=== PATIENT | male | born 1945 | race Caucasian/White ===

== ENCOUNTER 2016-08-07 16:50 | Inpatient (IN) ==
[2016-08-07] MEDS ORDERED: *HR* Morphine 2 MG/ML SYRINGE IV ONE (17:43)
[2016-08-07] MEDS ORDERED: Ondansetron 4 MG/2 ML VIAL IV ONE (17:43)
--- NOTE | 2016-08-07 18:14 | Emergency Department Note ---
Disposition Clinical Impression: Femoral neck fracture Qualifiers: Encounter type: initial encounter Fracture type: closed Laterality: right Qualified Code(s): S72.001A - Fracture of unspecified part of neck of right femur, initial encounter for closed fracture Disposition: Admitted As Inpatient Condition: Good [facility]errals: [facility] [Primary Care Provider] - Forms: ED Satisfaction Letter Lower Extremity Injury HPI - General Chief Complaint: ED Extremity Injury, Lower Stated Complaint: R hip fracture Time Seen by Provider: 08/07/16 16:54 Source: EMS Limitations: altered mental status Nursing Notes Reviewed: Yes Vital Signs Reviewed: Yes - History of Present Illness Pt Subjective Complaint: hip injury Injury location: Right hip Onset (ago): unknown Mechanism of Injury: unknown Context: other (unknown) Place: home Pain Severity: moderate Improves with: nothing Worsens with: movement Associated symptoms: Reports: unable to bear weight - Related Data Allergies Allergy/AdvReac Type Severity Reaction Status Date / Time Amoxicillin Allergy See Verified 08/07/16 16:59 Comments All systems ED: reviewed and negative except as stated. Constitutional: Denies: fever, chills, weakness Gastrointestinal: Denies: nausea, vomiting Past Medical History - Past Medical History Source: patient, old records reviewed, nursing notes reviewed Medical history: Reports: dementia, GERD, hypertension, other Psychiatric history: Reports: depression, schizophrenia - Social History Smoking Status: Never smoker Alcohol use: Reports: none Drug use: Reports: none Physical Exam - General Limitations: altered mental status General appearance: alert, in no apparent distress - Eye Eye exam: Present: normal appearance, PERRL, EOMI - ENT ENT exam: normal exam, normal oropharynx, mucous membranes moist - Neck Neck exam: Present: normal inspection, full ROM, trachea midline - Chest Chest inspection: Present: normal inspection, symmetric chest wall rise - Respiratory Respiratory exam: Present: normal lung sounds bilaterally - Cardiovascular Cardiovascular exam: Present: regular rate, normal rhythm, normal heart sounds - Abdominal Exam Abdominal exam: Present: soft, Non-Tender. Absent: tenderness, distention, guarding, rebound, rigidity - Expanded Lower Extremity Exam Hip/Pelvis exam: Present: tenderness (pain with movement) - Neurological Exam Neurological exam: Present: alert. Absent: oriented X3 (person only) - Psychiatric Psychiatric exam: Present: normal affect, normal mood - Skin Skin exam: Present: warm, dry, intact, normal color Course Vital Signs Temperature 98.1 F 08/07/16 16:53 Pulse Rate 75 08/07/16 16:53 Respiratory Rate 16 08/07/16 16:53 Blood Pressure 130/114 08/07/16 16:53 O2 Sat by Pulse Oximetry 99 08/07/16 16:53 Temperature 98.1 F 08/07/16 16:53 Pulse Rate 83 08/07/16 17:59 Respiratory Rate 16 08/07/16 17:59 Blood Pressure 140/88 08/07/16 17:59 O2 Sat by Pulse Oximetry 99 08/07/16 17:59 Oxygen Delivery Oxygen Delivery Room Air Extremity Injury, Lower - Differential Diagnosis Likely: sprain/strain, acute internal derangement of knee, fracture, dislocation - Medical Records Medical records reviewed: Yes I reviewed the patient's medical records. - Lab Data Lab results reviewed: Yes I reviewed the patient's lab results. Result diagrams: 08/07/16 18:14 08/07/16 18:14 Lab Results 08/07/16 08/07/16 Range/Units 18:14 18:14 WBC 7.1 (4.3-11.1) K/mcL RBC 4.02 L (4.19-5.50) M/mcL Hgb 12.7 L (12.9-16.9) g/dL Hct 38.0 (37.5-50.1) % MCV 94.5 (83.0-100.0) fL MCH 31.6 (28.0-33.3) pg MCHC 33.4 (31.6-35.5) g/dL RDW 13.2 (11.5-14.5) % Plt Count 283 (140-400) K/mcL MPV 9.4 (9.4-12.4) fL Immature Gran % 0.6 (0-4) % Seg Neutrophils % 69.5 % Lymphocytes % 22.0 % Monocytes % 6.7 % Eosinophils % 0.6 % Basophils % 0.6 % Neutrophils # 4.9 (1.6-8.9) K/mcL Lymphocytes # 1.6 (0.6-4.6) K/mcL Monocytes # 0.5 (0.0-1.3) K/mcL Eosinophils # 0.0 (0.0-0.6) K/mcL Basophils # 0.0 (0.0-0.2) K/mcL Immature Plt Fraction 1.6 (1.1-6.1) % Sodium 139 (136-145) mEq/L Potassium 3.9 (3.5-4.5) mEq/L Chloride 108 (98-109) mEq/L Carbon Dioxide 23 (19-29) mEq/L BUN 12 (8-26) mg/dL Creatinine 0.74 (0.72-1.25) mg/dL Est GFR ( Amer) > 60 (> 60) Est GFR (Non-Af Amer) > 60 (> 60) BUN/Creatinine Ratio 16 (6-26) Glucose 103 H (70-99) mg/dL Calculated Osmolality 288 (280-300) Calcium 8.6 (8.6-10.8) mg/dL - Radiology Data Radiology results reviewed: Yes I reviewed the patient's radiology results.
[2016-08-07 19:03] LABS: Basophils % 0.6 %; Eosinophils % 0.6 %; Hemoglobin 12.7 g/dL (12.9-16.9); Immature Granulocytes % 0.6 % (0-4); Immature Platelets 1.6 % (1.1-6.1); Lymphocytes # 1.6 K/mcL (0.6-4.6); Mean Corpuscular HGB Conc 33.4 g/dL (31.6-35.5); Mean Corpuscular Hemoglobin 31.6 pg (28.0-33.3); Mean Corpuscular Volume 94.5 fL (83.0-100.0); Mean Platelet Volume 9.4 fL (9.4-12.4); Monocytes # 0.5 K/mcL (0.0-1.3); Monocytes % 6.7 %; Neutrophils # 4.9 K/mcL (1.6-8.9); Platelet Count 283 K/mcL (140-400); Red Blood Count 4.02 M/mcL (4.19-5.50); Red Cell Distribution Width 13.2 % (11.5-14.5); Segmented Neutrophils % 69.5 %
[2016-08-07 19:12] LABS: INR 1.1; Prothrombin Time 12.3 Seconds (9.4-12.1)
[2016-08-07 19:15] LABS: Activated Partial Thrombo Time 29.4 Seconds (26.0-36.0)
[2016-08-07 19:19] LABS: BUN/Creatinine Ratio 16 (6-26); Blood Urea Nitrogen 12 mg/dL (8-26); Calcium 8.6 mg/dL (8.6-10.8); Carbon Dioxide 23 mEq/L (19-29); Chloride 108 mEq/L (98-109); Glucose 103 mg/dL (70-99); Osmolality,Calculated 288 (280-300); Potassium 3.9 mEq/L (3.5-4.5); Sodium 139 mEq/L (136-145); eGFR For African Americans > 60 (> 60); eGFR For Non-African Americans > 60 (> 60)
[2016-08-08] MEDS ORDERED: Naloxone 0.4 MG/ML INJ IVP PRN (00:33)
[2016-08-08] MEDS ORDERED: *HR* Promethazine 25 MG/ML VIAL IVP PRN (00:33)
--- NOTE | 2016-08-08 01:09 | Internal Med History&Physical ---
<Ruby Bermudez Nano - Last Filed: 08/08/16 00:59> Date of Encounter: 08/08/16 Time of Encounter: 00:59 Assessment and Plan (1) Femoral neck fracture Current visit: Yes Status: Acute RhipXR: mid-distal r femoral neck fracture no vascular compromise NPO pain control supportive care orthopedics consulted Qualifiers: Encounter type: initial encounter Fracture type: closed Laterality: right Qualified Code(s): S72.001A - Fracture of unspecified part of neck of right femur, initial encounter for closed fracture (2) Dementia Current visit: Yes Status: Acute continue home meds (3) Catatonic schizophrenia, chronic condition Current visit: Yes Status: Acute (4) Major depression, chronic Current visit: Yes Status: Acute continue home meds (5) Falls frequently Current visit: Yes Status: Acute fall precautions (6) Anemia Current visit: Yes Status: Acute chronic Fe deficiency recheck H/H Qualifiers: Anemia type: iron deficiency (7) Sleep apnea Current visit: Yes Status: Acute (8) COPD (chronic obstructive pulmonary disease) Current visit: Yes Status: Acute bronchodilators therapy Internal Medicine - H&P: HPI Chief complaint: R hip pain Admitted From: Emergency Dept Plans for Post Hospital Care: Transfer [facility] History of present illness: Mr. Veliz is a 70 year old male with c/o R hip pain. PMHx dementia, major depressive disorder, catatonic schizophrenia, multiple falls, dysphagia, subarachnoid hemmorrage, subdural hematoma, vascular malformation. Pt has impaired memory at baseline, is poor historian. Pt states he was walking down the [place] with his [place] the [place] he [place] when he tripped and fell. He states he landed on his right hip, did not hit his head or lose consciousness. He states this occurred earlier today, cannot recall at what time. He states right hip is a constant 10/10 pain localized to r hip/upper femur area. that he is unable to move secondary to pain. Pt denies LOC, headache, CP,SOB, numbness/ tingling. Past Med Surg Social Fam HX - Past Medical History Medical history: COPD, dementia, GERD, hypertension, other Psychiatric history: depression, schizophrenia - Social History Smoking Status: Never smoker Alcohol use: none Drug use: none - Family History Mother Living Status: Hx Family Cardiac Disorders: Yes Hx Family Respiratory Disorders: No Hx Family Cancer: No Hx Family GI Disorders: No Hx Family Psychosocial Disorders: Yes Hx Family Medical Disorders: Yes Internal Medicine - H&P: Meds Acetaminophen [Tylenol] 650 mg PO Q6H PRN 08/07/16 [History] Albuterol Neb [AccuNeb] 1.25 mg IH Q2H PRN 08/07/16 [History] Amlodipine [Norvasc] 5 mg PO DAILY 08/07/16 [History] Ammonium Lactate [Lac-Hydrin Five] 1 appl TP HS 08/07/16 [History] Atropine 1% Opth Drops 2 drop SL TID 08/07/16 [History] Bisacodyl [Dulcolax] 10 mg RC DAILY PRN 08/07/16 [History] Calcium Carbonate/Vitamin D3 [Calcium 500-Vit D3 200 Tablet] 1 each PO DAILY [History] Carboxymethylcellulose Sodium [Refresh Liquigel] 2 drop BOTH EYES BID 08/07/16 [ History] Chlorhexidine Gluconate [Peridex] 15 ml MM BID 08/07/16 [History] Cholecalciferol (D-3) [Vitamin D] 1,000 unit PO DAILY 08/07/16 [History] CloZAPine [Clozapine] 200 mg PO DAILY 08/07/16 [History] CloZAPine [Clozaril] 300 mg PO HS 08/07/16 [History] Ferrous Sulfate 325 mg PO DAILY 08/07/16 [History] Finasteride [Proscar] 5 mg PO DAILY 08/07/16 [History] Haloperidol 4 mg PO BID 08/07/16 [History] Haloperidol [Haldol] 2.5 mg PO Q6H PRN 08/07/16 [History] Hydrophilic Ointment [Aquabase] 1 appl TP WETHFRSA 08/07/16 [History] Ipratropium/Albuterol Neb [Duoneb] 3 ml IH Q6HR 08/07/16 [History] LORazepam [Ativan] 0.25 mg PO BID PRN 08/07/16 [History] LORazepam [Ativan] 0.5 mg PO QID 08/07/16 [History] Mag Hydrox/Al Hydrox/Simeth [Antacid Suspension] 15 ml PO TID PRN 08/07/16 [ History] Melatonin 9 mg PO HS 08/07/16 [History] Memantine HCl 10 mg PO BID 08/07/16 [History] Menthol/Camphor [Anti-Itch Lotion] 1 appl TP QID PRN 08/07/16 [History] Multivitamin [Multi-Day Vitamins] 1 each PO DAILY 08/07/16 [History] Nitroglycerin [Nitrostat] 0.4 mg SL Q5M PRN 08/07/16 [History] Nystatin POWDER [Nystop] 1 appl TP AD PRN 08/07/16 [History] Omeprazole [PriLOSEC] 20 mg PO DAILY 08/07/16 [History] Oxybutynin [Ditropan] 5 mg PO BID 08/07/16 [History] Polyethylene Glycol 3350 [Smoothlax] 17 gm PO DAILY 08/07/16 [History] Potassium Chloride [Klor-Con 10] 10 meq PO DAILY 08/07/16 [History] Sennosides/Docusate Sodium [Senna Plus] 2 each PO BID 08/07/16 [History] Allergies Amoxicillin Allergy (Verified 08/07/16 16:59) See Comments All Systems PM: A 10-system review of systems was performed and is negative for pertinent findings except as documented above in the HPI. - Constitutional Constitutional: falls - EENT Eyes: no change in vision, no discharge, no pain, no photophobia Ears: no ear discharge, no ear pain, no tinnitus Nose, mouth and throat: no dysphagia, no nasal discharge, no neck pain, no sore throat - Cardiovascular Cardiovascular ROS IM: no chest pain, no diaphoresis, no dyspnea, no lightheadedness, no palpitations, no syncope - Respiratory Respiratory: no cough, no dyspnea, no wheezing, no excessive phlegm production - Gastrointestinal Gastrointestinal: no abdominal pain, no diarrhea, no hematemesis, no hematochezia, no melena, no nausea, no vomiting - Genitourinary Genitourinary ROS male: no hematuria - Musculoskeletal Musculoskeletal ROS IM: limited range of motion, no numbness, no tingling - Integumentary Integumentary IM: no unusual bruising - Neurological Neurological ROS: frequent falls, no headache(s), no numbness, no tingling - Constitutional Vitals: Temp Pulse Resp BP Pulse Ox 98.1 F 74 16 126/86 96 08/08/16 00:46 08/08/16 00:46 08/08/16 00:46 08/08/16 00:46 08/08/16 00:46 General appearance: Present: A&O X 2 Exam: ill appearing, flat affect - Head Head exam: Present: atraumatic, normocephalic - Eye Eye exam: Present: EOMI, conjuntiva pink, sclera anicteric - ENT ENT exam: Present: mucous membranes moist - Neck Neck exam general surgery: Present: supple, trachea midline. Absent: lymphadenopathy - Respiratory Respiratory exam: Present: decreased breath sounds (diminished in lower lung mims). Absent: rales, respiratory distress, rhonchi, wheezes, tachypnea - Cardiovascular Cardiovascular exam: Present: RRR, +S1, +S2. Absent: diastolic murmur, gallop, rubs, systolic murmur - GI/Abdominal GI/Abdominal exam: Present: normal bowel sounds, soft, no peritoneal signs. Absent: distended, tenderness - Extremities Exam Extremities exam: Present: normal capillary refill, radial pulses palpable and symetrical. Absent: calf tenderness, cyanotic - Expanded Lower Extremities Exam Hip exam: Present: swelling, tenderness Upper Leg exam: Present: tenderness Neuro vascular tendon exam: Present: no vascular compromise. Absent: decreased fine/light touch Gait: Present: unable to bear weight - Neurological Exam Neurological exam: Present: alert, CN II-XII intact, no focal deficits. Absent : facial droop - Psychiatric Psychiatric exam: Present: flat affect Internal Med - H&P Results - Labs CBC & Chem 7: 08/07/16 18:14 08/07/16 18:14 <Mihir Henry R - Last Filed: 08/09/16 01:19> Internal Medicine - H&P: HPI History of present illness: Mr. Veliz is a 70 year old male All Systems PM: A 10-system review of systems was performed and is negative for pertinent findings except as documented above in the HPI. - Constitutional Vitals: Temp Pulse Resp BP Pulse Ox 98.5 F 68 16 129/63 96 08/08/16 10:09 08/08/16 10:09 08/08/16 10:09 08/08/16 10:09 08/08/16 10:09 Internal Med - H&P Results - Labs CBC & Chem 7: 08/08/16 06:06 08/08/16 06:06 Labs: Short CBC 08/08/16 Range/Units 06:06 WBC 6.6 (4.3-11.1) K/mcL Hgb 12.6 L (12.9-16.9) g/dL Hct 39.0 (37.5-50.1) % Plt Count 250 (140-400) K/mcL BMP 08/08/16 06:06 Sodium 140 Potassium 4.0 Chloride 107 Carbon Dioxide 26 BUN 13 Creatinine 0.82 Glucose 96 Calcium 9.3 - Attending Attestation I performed a history and physical examination of the patient and discussed his management with the Resident/Management Supervisor. I reviewed the residents note and agree with the documented findings and plan of care, with additions as below. 70-year-old male with history of dementia presents with fall and was noted to have right femoral neck fracture. O/E Confused. Lungs: CTA; cardiac: RRR. EKG personally reviewed by me shows sinus rhythm with no acute ST-T changes. CXR: Reported left basilar atelectasis. A/P: Orthopedic consultation, pain relief, incentive spirometer. PT/OT.
[2016-08-08] MEDS: cloZAPine 100 MG TABLET PO SCH ×2 (01:26→22:49)
[2016-08-08] MEDS: *HR* HYDROmorphone 2 MG/ML SYRINGE IVP PRN ×6 (01:26→23:35)
[2016-08-08] MEDS: Ipratropium/Albuterol Neb 3 ML IH SCH ×4 (03:53→23:50)
[2016-08-08 06:55] LABS: Hemoglobin 12.6 g/dL (12.9-16.9); Mean Corpuscular HGB Conc 32.3 g/dL (31.6-35.5); Mean Corpuscular Hemoglobin 30.5 pg (28.0-33.3); Mean Corpuscular Volume 94.4 fL (83.0-100.0); Mean Platelet Volume 9.1 fL (9.4-12.4); Platelet Count 250 K/mcL (140-400); Red Blood Count 4.13 M/mcL (4.19-5.50); Red Cell Distribution Width 13.2 % (11.5-14.5)
[2016-08-08 06:57] LABS: INR 1.2; Prothrombin Time 12.5 Seconds (9.4-12.1)
[2016-08-08 07:00] LABS: Activated Partial Thrombo Time 27.1 Seconds (26.0-36.0)
[2016-08-08 07:13] LABS: BUN/Creatinine Ratio 16 (6-26); Blood Urea Nitrogen 13 mg/dL (8-26); Carbon Dioxide 26 mEq/L (19-29); Chloride 107 mEq/L (98-109); Glucose 96 mg/dL (70-99); Magnesium 1.9 mg/dL (1.6-2.6); Osmolality,Calculated 290 (280-300); Sodium 140 mEq/L (136-145); eGFR For African Americans > 60 (> 60); eGFR For Non-African Americans > 60 (> 60)
[2016-08-08] MEDS: 0.9 % Sodium Chloride 1,000 ML IVC SCH ×2 (07:24→17:34)
[2016-08-08 07:28] LABS: Calcium 9.3 mg/dL (8.6-10.8)
[2016-08-08] MEDS: Pantoprazole 40 MG VIAL IVP SCH (09:55)
--- NOTE | 2016-08-08 11:59 | Internal Med Progress Note ---
Date of Encounter: 08/08/16 Time of Encounter: 11:57 - Assessment and plan (1) Femoral neck fracture Current Visit: Yes Status: Acute Assessment and plan: Cleared by hospitalist service for hip repair. He has no history of any cardiac issues. Questions regarding function capacity assessment seem to be fairly normal. Qualifiers: Encounter type: initial encounter Fracture type: closed Laterality: right Qualified Code(s): S72.001A - Fracture of unspecified part of neck of right femur, initial encounter for closed fracture (2) Dementia Current Visit: Yes Status: Chronic Qualifiers: Dementia type: unspecified type Dementia behavioral disturbance: without behavioral disturbance Qualified Code(s): F03.90 - Unspecified dementia without behavioral disturbance (3) Catatonic schizophrenia, chronic condition Current Visit: Yes Status: Chronic (4) COPD (chronic obstructive pulmonary disease) Current Visit: Yes Status: Chronic Qualifiers: COPD type: emphysema Emphysema type: panlobular Qualified Code(s): J43.1 - Panlobular emphysema - Subjective Interval history: He is very been seen by the hospitalist service early this morning. He states he is feeling fine. He states the pain medicine is controlling his pain. He denies any issues with chest pain shortness breath diaphoresis. He denied any exertional chest pain or shortness of breath. He stated he can walk a flight of stairs prior to this without issue. He had a mechanical fall that caused his hip fracture. He denies any passing out chest pain shortness breath. - Constitutional Vitals: Temp Pulse Resp BP Pulse Ox 98.5 F 68 16 129/63 90 L 08/08/16 10:09 08/08/16 10:09 08/08/16 10:10 08/08/16 10:09 08/08/16 10:10 General appearance: Present: A&O X 2 - Respiratory Respiratory exam: Present: CTAB. Absent: rales, rhonchi, wheezes - Cardiovascular Cardiovascular exam: Present: RRR, +S1, +S2 Internal Medicine: Result - Labs CBC & Chem 7: 08/08/16 06:06 08/08/16 06:06 Labs: Short CBC 08/08/16 Range/Units 06:06 WBC 6.6 (4.3-11.1) K/mcL Hgb 12.6 L (12.9-16.9) g/dL Hct 39.0 (37.5-50.1) % Plt Count 250 (140-400) K/mcL BMP 08/08/16 06:06 Sodium 140 Potassium 4.0 Chloride 107 Carbon Dioxide 26 BUN 13 Creatinine 0.82 Glucose 96 Calcium 9.3 - ABG Interpretation ABG results: PT/INR, D-dimer PT 12.5 Seconds (9.4-12.1) H 08/08/16 06:06 Consult Discharge Plan - Plan [facility]errals: [facility] [Primary Care Provider] -
--- NOTE | 2016-08-08 15:34 | Electrocardiograph Report ---
[address] [address] Test Date: 2016-08-07 Pat Name: Omari Veliz Department: 103 Room: [facility] Gender: M Supervisor Accounts Receivable: HANK : 1945 Requested By: Guru Lux Order Number: [id number] Reading MD: Timbo Mota MD Measurements Intervals [place] Rate: 86 P: -2 HI: 143 QRS: 10 QRSD: 93 T: 56 QT: 361 QTc: 404 Interpretive Statements SINUS RHYTHM Electronically Signed On 08-08-2016 15:32:32 EDT by Timbo Mota MD
--- NOTE | 2016-08-08 16:00 | Orthopedic Consult Note ---
Date of Encounter: 08/08/16 Time of Encounter: 07:30 Assessment and Plan (1) Femoral neck fracture Current Visit: Yes Status: Acute Xrays showed femoral neck fracture which will require surgical fixation. Plan for right hip percutanteous pinning by Dr. Clay today. Patient has dementia and cannot sign consent. Several attempts were made this morning and afternoon to contact Priti WAGGONER. Finally able to discuss the surgery procedure as well as r/b/a with EDILSON and she expressed understanding. Verbal consent given over the phone and confirmed by nurse over the phone. NPO after breakfast. Pain control per hospitalist. Qualifiers: Encounter type: initial encounter Fracture type: closed Laterality: right Qualified Code(s): S72.001A - Fracture of unspecified part of neck of right femur, initial encounter for closed fracture History of Present Illness Chief complaint: Right hip pain HPI: Mr. Veliz is a 70 year old male who presented to the [place] yesterday [place] after a [place]. Report states he was walking [place] the [place] with [place] walker when he tripped and fell. Patient has dementia and is poor historian, history from MI report. Was answering most questions appropriately today but slow in thought. Denies hitting head or LOC. Patient states pain is constant 10/10 but is sitting comfortably in bed and falling asleep during exam. Denies pain anywhere else and pain does not radiate from hip. Patient denies n/t to lower extremities. Denies chest pain, SOB, fevers, calf pain. Past Med Surg Social Fam HX - Past Medical History Medical history: COPD, dementia, GERD, hypertension, other Psychiatric history: depression, schizophrenia - Social History Smoking Status: Never smoker Alcohol use: none Drug use: none - Family History Mother Living Status: Hx Family Cardiac Disorders: Yes Hx Family Respiratory Disorders: No Hx Family Cancer: No Hx Family GI Disorders: No Hx Family Psychosocial Disorders: Yes Hx Family Medical Disorders: Yes Medications and Allergies Acetaminophen [Tylenol] 650 mg PO Q6H PRN 08/07/16 [History] Albuterol Neb [AccuNeb] 1.25 mg IH Q2H PRN 08/07/16 [History] Amlodipine [Norvasc] 5 mg PO DAILY 08/07/16 [History] Ammonium Lactate [Lac-Hydrin Five] 1 appl TP HS 08/07/16 [History] Atropine 1% Opth Drops 2 drop SL TID 08/07/16 [History] Bisacodyl [Dulcolax] 10 mg RC DAILY PRN 08/07/16 [History] Calcium Carbonate/Vitamin D3 [Calcium 500-Vit D3 200 Tablet] 1 each PO DAILY [History] Carboxymethylcellulose Sodium [Refresh Liquigel] 2 drop BOTH EYES BID 08/07/16 [ History] Chlorhexidine Gluconate [Peridex] 15 ml MM BID 08/07/16 [History] Cholecalciferol (D-3) [Vitamin D] 1,000 unit PO DAILY 08/07/16 [History] CloZAPine [Clozapine] 200 mg PO DAILY 08/07/16 [History] CloZAPine [Clozaril] 300 mg PO HS 08/07/16 [History] Ferrous Sulfate 325 mg PO DAILY 08/07/16 [History] Finasteride [Proscar] 5 mg PO DAILY 08/07/16 [History] Haloperidol 4 mg PO BID 08/07/16 [History] Haloperidol [Haldol] 2.5 mg PO Q6H PRN 08/07/16 [History] Hydrophilic Ointment [Aquabase] 1 appl TP WETHFRSA 08/07/16 [History] Ipratropium/Albuterol Neb [Duoneb] 3 ml IH Q6HR 08/07/16 [History] LORazepam [Ativan] 0.25 mg PO BID PRN 08/07/16 [History] LORazepam [Ativan] 0.5 mg PO QID 08/07/16 [History] Mag Hydrox/Al Hydrox/Simeth [Antacid Suspension] 15 ml PO TID PRN 08/07/16 [ History] Melatonin 9 mg PO HS 08/07/16 [History] Memantine HCl 10 mg PO BID 08/07/16 [History] Menthol/Camphor [Anti-Itch Lotion] 1 appl TP QID PRN 08/07/16 [History] Multivitamin [Multi-Day Vitamins] 1 each PO DAILY 08/07/16 [History] Nitroglycerin [Nitrostat] 0.4 mg SL Q5M PRN 08/07/16 [History] Nystatin POWDER [Nystop] 1 appl TP AD PRN 08/07/16 [History] Omeprazole [PriLOSEC] 20 mg PO DAILY 08/07/16 [History] Oxybutynin [Ditropan] 5 mg PO BID 08/07/16 [History] Polyethylene Glycol 3350 [Smoothlax] 17 gm PO DAILY 08/07/16 [History] Potassium Chloride [Klor-Con 10] 10 meq PO DAILY 08/07/16 [History] Sennosides/Docusate Sodium [Senna Plus] 2 each PO BID 08/07/16 [History] Allergies Amoxicillin Allergy (Verified 08/07/16 16:59) See Comments All Systems Reviewed: A 10-system review of systems was performed and is negative for pertinent findings except as documented above in the HPI. - Constitutional Constitutional: as per HPI - Cardiovascular Cardiovascular: as per HPI - Respiratory Respiratory: as per HPI - Musculoskeletal Musculoskeletal: as per HPI Physical Exam - Constitutional Vitals: Temp Pulse Resp BP Pulse Ox 98.5 F 68 16 129/63 90 L 08/08/16 10:09 08/08/16 10:09 08/08/16 10:10 08/08/16 10:09 08/08/16 10:10 - Hip right Tenderness with palpation: none (no pain reaction upon palpation of the hip) ROM: extension: abnormal (no erythema, ecchymosis or open wounds noted to the right hip, no calf pain to palpation, ROM restricted secondary to fracture and pain, good dorsiflexion of foot, NV intact) Results - Labs Result Diagrams: 08/08/16 06:06 08/08/16 06:06 Labs: Abnormal lab results RBC 4.13 M/mcL (4.19-5.50) L 08/08/16 06:06 Hgb 12.6 g/dL (12.9-16.9) L 08/08/16 06:06 MPV 9.1 fL (9.4-12.4) L 08/08/16 06:06 PT 12.5 Seconds (9.4-12.1) H 08/08/16 06:06 POC Glucose 102 (58-89) H 08/08/16 11:22 H & H 08/08/16 Range/Units 06:06 Hgb 12.6 L (12.9-16.9) g/dL Hct 39.0 (37.5-50.1) % All other labs normal. - Diagnostic results Hip x-ray: report reviewed, image reviewed Consult Discharge Plan - Plan [facility]errals: [facility] [Primary Care Provider] - - Attending Attestation Case and plan of care discussed with supervising physician who was available for all aspects of care.
--- NOTE | 2016-08-08 21:07 | Anesthesia Evaluation PreOp ---
Date of Encounter: 08/08/16 Time of Encounter: 21:06 - Past History Planned Operation: Right Hip Percutaneous Pinning Cardiac History: HTN Pulmonary History: COPD, MACR Dx COMPUTER SERVICE TECHNICIAN History: Other (dementia, depression, schizophrenia) Other Medical History: GERD Anesthesia History: No Prior Anesthetic Complications, Past Anesthesia Alcohol Use: none Drug use: none Medications and Allergies Acetaminophen [Tylenol] 650 mg PO Q6H PRN 08/07/16 [History] Albuterol Neb [AccuNeb] 1.25 mg IH Q2H PRN 08/07/16 [History] Amlodipine [Norvasc] 5 mg PO DAILY 08/07/16 [History] Ammonium Lactate [Lac-Hydrin Five] 1 appl TP HS 08/07/16 [History] Atropine 1% Opth Drops 2 drop SL TID 08/07/16 [History] Bisacodyl [Dulcolax] 10 mg RC DAILY PRN 08/07/16 [History] Calcium Carbonate/Vitamin D3 [Calcium 500-Vit D3 200 Tablet] 1 each PO DAILY [History] Carboxymethylcellulose Sodium [Refresh Liquigel] 2 drop BOTH EYES BID 08/07/16 [ History] Chlorhexidine Gluconate [Peridex] 15 ml MM BID 08/07/16 [History] Cholecalciferol (D-3) [Vitamin D] 1,000 unit PO DAILY 08/07/16 [History] CloZAPine [Clozapine] 200 mg PO DAILY 08/07/16 [History] CloZAPine [Clozaril] 300 mg PO HS 08/07/16 [History] Ferrous Sulfate 325 mg PO DAILY 08/07/16 [History] Finasteride [Proscar] 5 mg PO DAILY 08/07/16 [History] Haloperidol 4 mg PO BID 08/07/16 [History] Haloperidol [Haldol] 2.5 mg PO Q6H PRN 08/07/16 [History] Hydrophilic Ointment [Aquabase] 1 appl TP WETHFRSA 08/07/16 [History] Ipratropium/Albuterol Neb [Duoneb] 3 ml IH Q6HR 08/07/16 [History] LORazepam [Ativan] 0.25 mg PO BID PRN 08/07/16 [History] LORazepam [Ativan] 0.5 mg PO QID 08/07/16 [History] Mag Hydrox/Al Hydrox/Simeth [Antacid Suspension] 15 ml PO TID PRN 08/07/16 [ History] Melatonin 9 mg PO HS 08/07/16 [History] Memantine HCl 10 mg PO BID 08/07/16 [History] Menthol/Camphor [Anti-Itch Lotion] 1 appl TP QID PRN 08/07/16 [History] Multivitamin [Multi-Day Vitamins] 1 each PO DAILY 08/07/16 [History] Nitroglycerin [Nitrostat] 0.4 mg SL Q5M PRN 08/07/16 [History] Nystatin POWDER [Nystop] 1 appl TP AD PRN 08/07/16 [History] Omeprazole [PriLOSEC] 20 mg PO DAILY 08/07/16 [History] Oxybutynin [Ditropan] 5 mg PO BID 08/07/16 [History] Polyethylene Glycol 3350 [Smoothlax] 17 gm PO DAILY 08/07/16 [History] Potassium Chloride [Klor-Con 10] 10 meq PO DAILY 08/07/16 [History] Sennosides/Docusate Sodium [Senna Plus] 2 each PO BID 08/07/16 [History] Allergies Amoxicillin Allergy (Verified 08/07/16 16:59) See Comments - Meds/Allergy Pre-op Review Medications Reviewed: Yes Allergies Reviewed: Yes Beta Blockers on Current Med List: No Anesthesia Results - Labs 08/08/16 06:06 08/08/16 06:06 Laboratory Tests 08/08/16 06:06 PT 12.5 H INR 1.2 APTT 27.1 - Imaging EKG: report reviewed (08/07/2016 SR) Additional studies: 10/17/2011 Stress Impression: Stress Note * Resting ECG demonstrated normal sinus rhythm. * No baseline arrhythmias were noted. * Pharmacologic stress ECG is negative for ischemia. * No arrhythmias were noted during stress * Patient had no chest pain during stress. Hemodynamic response * The patient demonstrated normal blood pressure response. Study Quality/Desc. * Study quality is average Gated EF % * Gated EF = 61% Left Ventricle * The left ventricle does not appear dilated. NORMALS * Normal wall motion in stress. Apical Perfusion Rest * The apex segment shows a mild reduction in perfusion. Apical Perfusion Stress * The apex segment shows a mild reduction in perfusion. TID * There is no evidence of transient ischemic dilatation Nuclear comments * Negative for infarct. * Negative for ischemia or prior infarct. * Fixed small defect in the Apical wall most likely due to artifact. Anesthesia Exam Vital Signs/O2 Sat, Most Current Temp Pulse Resp BP Pulse Ox 98.9 F 91 24 184/92 97 08/08/16 19:39 08/08/16 19:39 08/08/16 19:39 08/08/16 19:39 08/08/16 19:39 Height: 5'8''/1.73 m Weight: 140 lbs/63.8 kg NPO (# of Hours): 8 Pain Scale: 10 Pain Scale Used: Numeric (1 - 10) - HEENT Pupil (Motor): EOMI Mallampati: III Teeth: Poor dentition Oral Opening: Greater than 3 - COMPUTER SERVICE TECHNICIAN LOC: Confused COMPUTER SERVICE TECHNICIAN Motor: Normal RUE, Normal LUE, Normal RLE, Normal LLE, Normal Face COMPUTER SERVICE TECHNICIAN Sensory: Normal: RUE, LUE, RLE, LLE, Face - Cardiac Rhythm: Regular Murmur: None - Pulmonary Breath Sounds: bilateral Clear Respiratory Effort: Symmetrical Anesthesia Assess/Plan ASA Score: 3 (cooperative but confused) Anesthetic Plan: General (Consent obtained by phone from daughter Priti ) Monitoring Plan: Standard Monitors Recovery Plan: PACU
[2016-08-09 00:06] LABS: Bilirubin,Urine Negative (Negative); Blood,Urine Negative (Negative); Clarity,Urine Cloudy (Clear); Color,Urine Yellow (Yellow); Glucose,Urine (UA) Normal (Normal); Ketones,Urine 15 mg/dL (Negative); Leukocyte Esterase,Urine Negative (Negative); Nitrite,Urine Negative (Negative); PH,Urine 8.5 pH Units (5.0-8.0); Protein,Urine 30 mg/dL (Neg-Trace); Specific Gravity,Urine 1.016 (1.010-1.025); Urobilinogen,Urine Normal (Normal)
[2016-08-09 00:10] LABS: Bacteria,Urine None Seen per hpf (None-Few); Hyaline Casts,Urine None Seen per lpf (None-Few); Squamous Epithelial Cell,Urine Many per lpf (None-Few); WBC,Urine 0-3 per hpf (0-3)
[2016-08-09] MEDS: *HR* HYDROmorphone 2 MG/ML SYRINGE IVP PRN ×3 (03:07→11:29)
[2016-08-09] MEDS: Ipratropium/Albuterol Neb 3 ML IH SCH ×4 (03:42→23:34)
--- NOTE | 2016-08-09 09:36 | Internal Med Progress Note ---
Date of Encounter: 08/09/16 Time of Encounter: 09:33 - Assessment and plan (1) Femoral neck fracture Current Visit: Yes Status: Acute Assessment and plan: He is scheduled for surgery today Qualifiers: Encounter type: initial encounter Fracture type: closed Laterality: right Qualified Code(s): S72.001A - Fracture of unspecified part of neck of right femur, initial encounter for closed fracture (2) Dementia Current Visit: Yes Status: Chronic Qualifiers: Dementia type: unspecified type Dementia behavioral disturbance: without behavioral disturbance Qualified Code(s): F03.90 - Unspecified dementia without behavioral disturbance (3) Catatonic schizophrenia, chronic condition Current Visit: Yes Status: Chronic (4) COPD (chronic obstructive pulmonary disease) Current Visit: Yes Status: Chronic Assessment and plan: 1 He is stable, no complaints shortness of breath Currently on room air. 2.incentive spirometry at bedside for use after surgery Qualifiers: COPD type: emphysema Emphysema type: panlobular Qualified Code(s): J43.1 - Panlobular emphysema - Time Spent With Patient less than 15 minutes - Subjective Interval history: he denies any pain. He states aretaking very good care of his pain He denies any shortness of breath, chest pain, nausea or the like. There is some delay because there because of his dementia. That has been addressed and he will be going to surgery later today - Constitutional Vitals: Temp Pulse Resp BP Pulse Ox 98.5 F 88 14 155/92 95 08/09/16 06:34 08/09/16 06:34 08/09/16 06:34 08/09/16 06:34 08/09/16 06:34 General appearance: Present: A&O X 2, answers questions appropriately - Respiratory Respiratory exam: Present: decreased breath sounds, CTAB - Cardiovascular Cardiovascular exam: Present: RRR Internal Medicine: Result - Labs CBC & Chem 7: 08/08/16 06:06 08/08/16 06:06 Labs: Urine 08/08/16 Range/Units 23:30 Urine Color Yellow (Yellow) Urine Clarity Cloudy A (Clear) Urine pH 8.5 H (5.0-8.0) pH Units Ur Specific Stuart 1.016 (1.010-1.025) Urine Protein 30 H (Neg-Trace) mg/dL Urine Glucose (UA) Normal (Normal) mg/dL - ABG Interpretation ABG results: PT/INR, D-dimer PT 12.5 Seconds (9.4-12.1) H 08/08/16 06:06 Consult Discharge Plan - Plan [facility]errals: [facility] [Primary Care Provider] -
[2016-08-09] MEDS: Pantoprazole 40 MG VIAL IVP SCH (09:39)
[2016-08-09] MEDS: 0.9 % Sodium Chloride 1,000 ML IVC SCH (09:39)
[2016-08-09] MEDS ORDERED: Lidocaine -MPF 2% 2 ML VIAL ONE (14:28)
[2016-08-09] MEDS ORDERED: *HR* Propofol 200 MG/20 ML VIAL IVP ONE (14:28)
[2016-08-09] MEDS ORDERED: *HR* Midazolam HCl 2 MG/2 ML VIAL ONE (14:34)
[2016-08-09] MEDS ORDERED: *HR* FentaNYL (PF) 100 MCG/2 ML VIAL ONE (14:34)
[2016-08-09] MEDS ORDERED: Clindamycin 900 MG/50 ML 900 MG/50 ML IV.SOLN IVPB ONE (15:41)
[2016-08-09] MEDS ORDERED: Acetaminophen IV 1,000 MG/100 ML INFUS..BTL ONE (15:42)
[2016-08-09] MEDS ORDERED: Dexamethasone 4 MG/ML VIAL ONE (16:25)
--- NOTE | 2016-08-09 17:11 | Operative Note ---
Date of procedure: 08/09/16 Pre-op diagnosis: Right hip femoral neck fracture, nondisplaced Post-op diagnosis: other (Right hip femoral neck fracture, displaced) Procedure: Right hip percutaneous pinning Anesthesia: JOSE Surgeon: Edward Clay Svp Chief Marketing Officer: Deirdre Núñez Estimated blood loss (cc): 10 Specimen: 0 Condition: stable Disposition: PACU Procedure in Detail: The patient received IV antibiotics in the holding area, he was brought to the operating room, a sign in was performed, and he underwent general anesthesia on the hospital bed. The patient was then transferred to the OR fracture table in supine position. The patient was positioned against the groin post, with traction applied to the right lower extremity. The contralateral lower extremity was then placed onto a well-padded leg parker keeping her hip flexed and abducted. Once the patient was well positioned, the x-ray C-arm was brought in and fluoroscopy shots of the hip were taken, adjusting the lower extremity, making sure we will get a good AP and lateral views. Initial x-rays in the emergency room showed that the hip was stable in the valgus impacted position. Unfortunately the fracture was displaced. The femoral neck fracture could be reduced. The fracture was under 48 hours old, I was able to obtain a good reduction on the fracture table. It was decided to proceed with the hip pinning. The right hip and thigh down to the knee was then prepped and draped in standard technique. A timeout was performed. The guidewire was placed over the hip and it's position was checked under fluoroscopy. The guidewires in place percutaneously through the skin and driven from the lateral cortex paralleling the inferior neck and staying central on the AP plane. This was driven up to the head, its position checked on AP and lateral views. A 3 cm longitudinal incisions then made going superior to the guidewire. The depth was measured, next I overdrilled the guidewire. Lateral compression was applied reducing the fracture, and then placed the appropriate length screw with long threads. This compressed the fracture well. The patient had very strong bone and a good bite was felt. Another guidewire was then placed superior and posterior, steps were repeated to place another screw. When drilling was noted the bone and femoral head was fairly hard. I placed a short threaded screw, once again compressing. The screw unfortunately penetrated through the head. The screw was removed and a 5 mm shorter screw with a washer was used. This gave stable fixation. A third guidewire was placed anterior to the second wire, and a short threaded screw was placed in standard technique. Due to the initial displacement, it was decided to place a fourth screw. This was placed more superiorly and midline in standard technique with a short threaded screw. Final AP and lateral shots were taken and saved, showing good screw placement. The wound was irrigated normal saline, the subcutaneous tissues closed with 2-0 Vicryl sutures, and skin stapled. Sterile dressings were applied. The patient was then transferred to hospital bed where he was extubated and taken to recovery room in stable condition.
[2016-08-09] MEDS ORDERED: Ringers Solution, Lactated 1,000 ML ONE (17:53)
[2016-08-09] MEDS ORDERED: Naloxone 0.4 MG/ML INJ IVP PRN (18:03)
[2016-08-09] MEDS ORDERED: *HR* HYDROcodone/Acet 5/325 mg TABLET PO PRN (18:03)
[2016-08-09] MEDS ORDERED: Ondansetron 4 MG/2 ML VIAL IVP PRN (18:03)
[2016-08-09] MEDS ORDERED: Sennosides 8.6 MG TABLET PO PRN (18:03)
[2016-08-09] MEDS ORDERED: Acetaminophen 325 MG TABLET PO PRN (18:03)
[2016-08-09] MEDS ORDERED: *HR* Promethazine 25 MG/ML VIAL IVP PRN (18:03)
--- NOTE | 2016-08-09 18:04 | Anesthesia Evaluation Post Op ---
Date of Encounter: 08/09/16 Time of Encounter: 18:02 - Vital Signs Vital Signs: Vital Signs/O2 Sat/Glucose, Most Current Temp Pulse Resp BP Pulse Ox 08/09/16 17:50 78 16 97 08/09/16 17:40 98.7 F 79 16 134/70 96 08/09/16 17:30 83 16 141/83 96 08/09/16 17:20 99.0 F 82 16 131/72 98 08/09/16 17:10 83 16 172/99 98 08/09/16 17:00 79 16 151/90 98 08/09/16 16:50 98.4 F 79 14 144/87 96 - Lungs Lungs: Clear Ascult./Percussion - Airway Airway: Non-obstructed - Cardiovascular Irregular Rate, Baseline Rhythm - Mental Status Mental Status: Alert & Oriented, Answers Appropriately - Pain Pain Scale: 1 Pain Scale used: Hernandez-Bashir (Faces) - Nausea Vomiting Nausea Vomiting: Not Present - Hydration Hydration: Ice chips, Able to void - Discharge PostOp Status: Transfer Patient to floor Anes Supervising Prov Stmt: Pt seen/evaluated, VSs and pt has met criteria for discharge to floor. - MD Yamel
[2016-08-09] MEDS: Ringers Solution, Lactated 1,000 ML IVC SCH (18:26)
[2016-08-09] MEDS: cloZAPine 100 MG TABLET PO SCH (22:27)
[2016-08-10] MEDS: Clindamycin 900 MG/50 ML 900 MG/50 ML IV.SOLN IVPB SCH ×2 (00:51→09:14)
[2016-08-10] MEDS: Ipratropium/Albuterol Neb 3 ML IH SCH ×4 (04:30→22:55)
[2016-08-10 05:00] LABS: Hematocrit 35.2 % (37.5-50.1); Hemoglobin 11.3 g/dL (12.9-16.9)
[2016-08-10] MEDS: *HR* Morphine 2 MG/ML SYRINGE IVP PRN (05:25)
[2016-08-10] MEDS: *HR* Enoxaparin 30 MG/0.3 ML SYRINGE SQ SCH ×2 (05:40→17:37)
[2016-08-10] MEDS: Pantoprazole 40 MG VIAL IVP SCH (09:14)
[2016-08-10] MEDS: Ringers Solution, Lactated 1,000 ML IVC SCH ×2 (09:18→19:58)
--- NOTE | 2016-08-10 10:29 | Internal Med Progress Note ---
Date of Encounter: 08/10/16 Time of Encounter: 10:25 - Assessment and plan (1) Femoral neck fracture Current Visit: Yes Status: Acute Assessment and plan: s/p sugery recovering well Qualifiers: Encounter type: initial encounter Fracture type: closed Laterality: right Qualified Code(s): S72.001A - Fracture of unspecified part of neck of right femur, initial encounter for closed fracture (2) Dementia Current Visit: Yes Status: Chronic Assessment and plan: stable Qualifiers: Dementia type: unspecified type Dementia behavioral disturbance: without behavioral disturbance Qualified Code(s): F03.90 - Unspecified dementia without behavioral disturbance (3) Catatonic schizophrenia, chronic condition Current Visit: Yes Status: Chronic Assessment and plan: chronic and stable no agitation (4) Major depression, chronic Current Visit: Yes Status: Chronic Assessment and plan: chronic (5) Anemia Current Visit: Yes Status: Chronic Assessment and plan: hgb stable Qualifiers: Anemia type: iron deficiency Iron deficiency anemia type: unspecified iron deficiency Qualified Code(s): D50.9 - Iron deficiency anemia, unspecified (6) COPD (chronic obstructive pulmonary disease) Current Visit: Yes Status: Chronic Assessment and plan: no active wheezing Qualifiers: COPD type: emphysema Emphysema type: panlobular Qualified Code(s): J43.1 - Panlobular emphysema - Subjective Interval history: patient with history of dementia, major depression, schizophrenia, frequent falls, , COPD, Patient was admitted following a trip and fall sustaining femoral neck fracture underwent surgery yesterday Today not much pain was able to get up with physical therapy and was able to walk denies any chest pain or sob - Constitutional Vitals: Temp Pulse Resp BP Pulse Ox 98.4 F 84 16 122/80 96 08/10/16 07:44 08/10/16 07:44 08/10/16 07:44 08/10/16 07:44 08/10/16 09:16 General appearance: Present: A&O X 2, answers questions appropriately - Head Head exam: Present: atraumatic, normocephalic - Eye Eye exam: Present: PERRL, conjuntiva pink, sclera anicteric Pupils: Present: PERRL - Neck Neck exam general surgery: Present: supple, trachea midline. Absent: lymphadenopathy - Respiratory Respiratory exam: Present: CTAB. Absent: accessory muscle use, rales, rhonchi, wheezes - Cardiovascular Cardiovascular exam: Present: RRR, +S1, +S2. Absent: diastolic murmur, gallop, rubs, systolic murmur - GI/Abdominal GI/Abdominal exam: Present: normal bowel sounds, soft, no peritoneal signs. Absent: distended, tenderness Internal Medicine: Result - Labs CBC & Chem 7: 08/10/16 04:20 08/08/16 06:06 Labs: Short CBC 08/10/16 Range/Units 04:20 Hgb 11.3 L (12.9-16.9) g/dL Hct 35.2 L (37.5-50.1) % - ABG Interpretation ABG results: PT/INR, D-dimer PT 12.5 Seconds (9.4-12.1) H 08/08/16 06:06 - Impressions Impressions Fluoroscopy 08/09/16 15:45 IMPRESSION: Intraprocedural fluoroscopic spot images as above. See separate procedure report for more information. D/ / 08/09/2016 22:05:35 Kirk Myrick MD / beckie Interpreting Provider: Kirk Myrick MD Hip X-Ray 08/09/16 15:45 IMPRESSION: Intraprocedural fluoroscopic spot images as above. See separate procedure report for more information. D/ / 08/09/2016 22:05:35 Kirk Myrick MD / beckie Interpreting Provider: Kirk Myrick MD - VTE Documentation of Mechanical Device: Intermittent pneumatic compression device Consult Discharge Plan - Plan [facility]errals: [facility] [Primary Care Provider] -
--- NOTE | 2016-08-10 10:35 | Orthopedics Progress Note ---
Date of Encounter: 08/10/16 Time of Encounter: 10:20 - Assessment and Plan (1) Femoral neck fracture Current Visit: Yes Status: Acute POD#1 right hip pinning Dressings to be changed tomorrow. Continue with therapy. He is to be TTWB if he will be compliant, If not compliant, then NWB x 6weeks. Pain control per hospitalist. Will need 2 weeks lovenox then switched to ASA 81 mg daily. Will follow up with in [facility] office with Deirdre Núñez PA-C in 2 weeks. Qualifiers: Encounter type: initial encounter Fracture type: closed Laterality: right Qualified Code(s): S72.001A - Fracture of unspecified part of neck of right femur, initial encounter for closed fracture Subjective Principal diagnosis: POD#1 s/p right hip pinning Interval history: Patient laying comfortably in bed and easily awakens upon questioning but does not provide clear answers. No events overnight. Objective Vital signs: Vital Signs Temp Pulse Resp BP Pulse Ox 08/10/16 09:16 96 08/10/16 07:44 98.4 F 84 16 122/80 96 08/10/16 04:00 98.5 F 83 16 141/81 95 08/10/16 01:11 98.5 F 86 17 150/85 94 L 08/09/16 23:34 15 94 L 08/09/16 22:00 98.2 F 84 16 139/83 95 08/09/16 20:00 99.1 F 86 16 144/81 94 L 08/09/16 18:30 93 16 148/85 95 08/09/16 18:15 162/87 08/09/16 18:03 98.1 F 84 14 151/87 97 08/09/16 17:50 78 16 97 08/09/16 17:40 98.7 F 79 16 134/70 96 08/09/16 17:30 83 16 141/83 96 08/09/16 17:20 99.0 F 82 16 131/72 98 08/09/16 17:10 83 16 172/99 98 08/09/16 17:00 79 16 151/90 98 08/09/16 16:50 98.4 F 79 14 144/87 96 08/09/16 10:48 16 93 L Intake and Output 08/09/16 08/10/16 08/10/16 23:59 07:59 15:59 Intake Total 200 / 200 110 / 110 1120 / 1120 Output Total 1285 / 1285 150 / 150 Balance -1085 / -1085 -40 / -40 1120 / 1120 Intake: IV Fluids 50 / 50 1000 / 1000 Lactated Ringers 1,000 ML 1000 / 1000 @ 75 mls/hr IVC .[id number] [facility] Rx#:[id number] Cleocin 900 MG/50 ML 900 50 / 50 mg In 50 ml @ 50 mls/hr IVPB Q8HR [facility]AL[facility] Rx#: [id number] Oral 200 / 200 60 / 60 120 / 120 Output: Urine 175 / 175 Estimated Blood Loss 10 10 Catheter 1100 / 1100 150 / 150 Other: Meal Breakfast Percent of Meal Consumed 75% # Urine Diapers 1 Blood Glucose* 100 Incision: clean and dry (dressings c/d/i, no calf pain, good dorsiflexion of foot, NV intact) - Labs CBC & BMP: 08/10/16 04:20 08/08/16 06:06 Labs: Abnormal lab results RBC 4.13 M/mcL (4.19-5.50) L 08/08/16 06:06 Hgb 11.3 g/dL (12.9-16.9) L 08/10/16 04:20 Hct 35.2 % (37.5-50.1) L 08/10/16 04:20 MPV 9.1 fL (9.4-12.4) L 08/08/16 06:06 PT 12.5 Seconds (9.4-12.1) H 08/08/16 06:06 POC Glucose 100 (58-89) H 08/10/16 07:46 Urine Clarity Cloudy (Clear) A 08/08/16 23:30 Urine pH 8.5 pH Units (5.0-8.0) H 08/08/16 23:30 Urine Protein 30 mg/dL (Neg-Trace) H 08/08/16 23:30 Urine Ketones 15 mg/dL (Negative) H 08/08/16 23:30 Urine Microscopic RBC 3-5 per hpf (0-3) H 08/08/16 23:30 Ur Squamous Epith Cells Many per lpf (None-Few) H 08/08/16 23:30 - VTE Documentation of Mechanical Device: Intermittent pneumatic compression device Consult Discharge Plan - Plan [facility]errals: [facility] [Primary Care Provider] -
[2016-08-10] MEDS ORDERED: *HR* Enoxaparin 30 MG/0.3 ML SYRINGE SQ SCH (17:00)
[2016-08-10] MEDS: cloZAPine 100 MG TABLET PO SCH ×2 (19:44→20:02)
[2016-08-10] MEDS ORDERED: cloZAPine 100 MG TABLET PO ONE (20:00)
[2016-08-11 04:49] LABS: Hemoglobin 10.7 g/dL (12.9-16.9); Mean Corpuscular Hemoglobin 31.7 pg (28.0-33.3); Red Blood Count 3.38 M/mcL (4.19-5.50)
[2016-08-11 04:50] LABS: Hematocrit 32.6 % (37.5-50.1); Immature Platelets 3.3 % (1.1-6.1); Mean Corpuscular HGB Conc 32.8 g/dL (31.6-35.5); Mean Corpuscular Volume 96.4 fL (83.0-100.0); Mean Platelet Volume 10.9 fL (9.4-12.4); Red Cell Distribution Width 13.8 % (11.5-14.5)
[2016-08-11] MEDS: Ipratropium/Albuterol Neb 3 ML IH SCH ×4 (05:16→22:39)
[2016-08-11] MEDS: *HR* Enoxaparin 30 MG/0.3 ML SYRINGE SQ SCH ×2 (06:19→17:02)
[2016-08-11 07:41] LABS: BUN/Creatinine Ratio 16 (6-26); Blood Urea Nitrogen 11 mg/dL (8-26); Calcium 8.6 mg/dL (8.6-10.8); Carbon Dioxide 26 mEq/L (19-29); Chloride 110 mEq/L (98-109); Glucose 94 mg/dL (70-99); Osmolality,Calculated 293 (280-300); Potassium 3.4 mEq/L (3.5-4.5); Sodium 142 mEq/L (136-145); eGFR For African Americans > 60 (> 60); eGFR For Non-African Americans > 60 (> 60)
[2016-08-11] MEDS: *HR* OxyCODONE Immed Rel 5 MG TABLET PO PRN ×4 (08:04→23:58)
[2016-08-11] MEDS: Pantoprazole 40 MG VIAL IVP SCH (08:04)
[2016-08-11] MEDS: Ringers Solution, Lactated 1,000 ML IVC SCH ×2 (08:16→21:45)
--- NOTE | 2016-08-11 10:21 | Internal Med Progress Note ---
Date of Encounter: 08/11/16 Time of Encounter: 10:18 - Assessment and plan (1) Femoral neck fracture Current Visit: Yes Status: Acute Assessment and plan: s/p surgery no complication Qualifiers: Encounter type: initial encounter Fracture type: closed Laterality: right Qualified Code(s): S72.001A - Fracture of unspecified part of neck of right femur, initial encounter for closed fracture (2) Dementia Current Visit: Yes Status: Chronic Assessment and plan: dementia with sometimes confusion calm at present Qualifiers: Dementia type: unspecified type Dementia behavioral disturbance: without behavioral disturbance Qualified Code(s): F03.90 - Unspecified dementia without behavioral disturbance (3) Catatonic schizophrenia, chronic condition Current Visit: Yes Status: Chronic Assessment and plan: chronic (4) Major depression, chronic Current Visit: Yes Status: Chronic Assessment and plan: chronic (5) Anemia Current Visit: Yes Status: Chronic Qualifiers: Anemia type: iron deficiency Iron deficiency anemia type: unspecified iron deficiency Qualified Code(s): D50.9 - Iron deficiency anemia, unspecified (6) COPD (chronic obstructive pulmonary disease) Current Visit: Yes Status: Chronic Assessment and plan: no active wheezing Qualifiers: COPD type: emphysema Emphysema type: panlobular Qualified Code(s): J43.1 - Panlobular emphysema - Subjective Interval history: patient with history of dementia, major depression, schizophrenia, frequent falls, , COPD, Patient was admitted following a trip and fall sustaining femoral neck fracture underwent surgery yesterday Today not much pain was able to get up with physical therapy and was able to walk denies any chest pain or sob patient was confused climbing out of bed but now calm no complains - Constitutional Vitals: Temp Pulse Resp BP Pulse Ox 98.1 F 83 16 149/76 98 08/11/16 07:00 08/11/16 07:00 08/11/16 09:36 08/11/16 07:00 08/11/16 09:36 General appearance: Present: A&O X 2, answers questions appropriately - Eye Eye exam: Present: PERRL, conjuntiva pink, sclera anicteric Pupils: Present: PERRL - Neck Neck exam general surgery: Present: supple, trachea midline. Absent: lymphadenopathy - Respiratory Respiratory exam: Present: CTAB. Absent: accessory muscle use, rales, rhonchi, wheezes - Cardiovascular Cardiovascular exam: Present: RRR, +S1, +S2. Absent: diastolic murmur, gallop, rubs, systolic murmur Internal Medicine: Result - Labs CBC & Chem 7: 08/11/16 04:27 08/11/16 07:16 Labs: Short CBC 08/11/16 Range/Units 04:27 WBC 7.0 (4.3-11.1) K/mcL Hgb 10.7 L (12.9-16.9) g/dL Hct 32.6 L (37.5-50.1) % Plt Count 58 L D (140-400) K/mcL BMP 08/11/16 07:16 Sodium 142 Potassium 3.4 L Chloride 110 H Carbon Dioxide 26 BUN 11 Creatinine 0.68 L Glucose 94 Calcium 8.6 - ABG Interpretation ABG results: PT/INR, D-dimer PT 12.5 Seconds (9.4-12.1) H 08/08/16 06:06 - Impressions Impressions Fluoroscopy 08/09/16 15:45 IMPRESSION: Intraprocedural fluoroscopic spot images as above. See separate procedure report for more information. D/ / 08/09/2016 22:05:35 Kirk Myrick MD / beckie Interpreting Provider: Kirk Myrick MD Hip X-Ray 08/09/16 15:45 IMPRESSION: Intraprocedural fluoroscopic spot images as above. See separate procedure report for more information. D/ / 08/09/2016 22:05:35 Kirk Myrick MD / beckie Interpreting Provider: Kirk Myrick MD - VTE Documentation of Mechanical Device: Intermittent pneumatic compression device Consult Discharge Plan - Plan Referrals: [facility] [Primary Care Provider] -
[2016-08-11 14:45] LABS: Magnesium 1.8 mg/dL (1.6-2.6); Potassium 4.2 mEq/L (3.5-4.5)
[2016-08-11] MEDS: cloZAPine 100 MG TABLET PO SCH (20:47)
[2016-08-11] MEDS: *HR* Morphine 2 MG/ML SYRINGE IVP PRN (22:58)
[2016-08-12] MEDS: Ipratropium/Albuterol Neb 3 ML IH SCH ×4 (04:36→21:38)
[2016-08-12] MEDS: *HR* Enoxaparin 30 MG/0.3 ML SYRINGE SQ SCH ×2 (05:23→17:34)
[2016-08-12] MEDS: Pantoprazole 40 MG VIAL IVP SCH (09:06)
[2016-08-12] MEDS: *HR* Morphine 2 MG/ML SYRINGE IVP PRN (09:42)
[2016-08-12] MEDS: Ringers Solution, Lactated 1,000 ML IVC SCH (12:00)
--- NOTE | 2016-08-12 14:57 | Internal Med Progress Note ---
Date of Encounter: 08/12/16 Time of Encounter: 14:55 - Assessment and plan (1) Femoral neck fracture Current Visit: Yes Status: Acute Assessment and plan: s/p surgery recovering well Qualifiers: Encounter type: initial encounter Fracture type: closed Laterality: right Qualified Code(s): S72.001A - Fracture of unspecified part of neck of right femur, initial encounter for closed fracture (2) Dementia Current Visit: Yes Status: Chronic Assessment and plan: chronic Qualifiers: Dementia type: unspecified type Dementia behavioral disturbance: without behavioral disturbance Qualified Code(s): F03.90 - Unspecified dementia without behavioral disturbance (3) Catatonic schizophrenia, chronic condition Current Visit: Yes Status: Chronic (4) Major depression, chronic Current Visit: Yes Status: Chronic Assessment and plan: chronic (5) Anemia Current Visit: Yes Status: Chronic Assessment and plan: stable h and h Qualifiers: Anemia type: iron deficiency Iron deficiency anemia type: unspecified iron deficiency Qualified Code(s): D50.9 - Iron deficiency anemia, unspecified (6) COPD (chronic obstructive pulmonary disease) Current Visit: Yes Status: Chronic Assessment and plan: o active wheezi ng Qualifiers: COPD type: emphysema Emphysema type: panlobular Qualified Code(s): J43.1 - Panlobular emphysema (7) HTN (hypertension) Current Visit: Yes Status: Chronic Assessment and plan: prn lopressor Qualifiers: Hypertension type: essential hypertension Qualified Code(s): I10 - Essential (primary) hypertension - Subjective Interval history: patient with history of dementia, major depression, schizophrenia, frequent falls, , COPD, Patient was admitted following a trip and fall sustaining femoral neck fracture underwent surgery yesterday Today not much pain was able to get up with physical therapy and was able to walk denies any chest pain or sob patient was confused climbing out of bed but now calm no complains today no new complain nurse concern about BP [facility] - Constitutional Vitals: Temp Pulse Resp BP Pulse Ox 98.8 F 91 18 133/79 91 L 08/12/16 11:38 08/12/16 11:38 08/12/16 11:38 08/12/16 11:38 08/12/16 11:38 General appearance: Present: A&O X 2, answers questions appropriately - Head Head exam: Present: atraumatic, normocephalic - Eye Eye exam: Present: PERRL, conjuntiva pink, sclera anicteric Pupils: Present: PERRL - Neck Neck exam general surgery: Present: supple, trachea midline. Absent: lymphadenopathy - Respiratory Respiratory exam: Present: rhonchi - Cardiovascular Cardiovascular exam: Present: RRR, +S1, +S2. Absent: diastolic murmur, gallop, rubs, systolic murmur Internal Medicine: Result - Labs CBC & Chem 7: 08/11/16 04:27 08/11/16 14:00 - ABG Interpretation ABG results: PT/INR, D-dimer PT 12.5 Seconds (9.4-12.1) H 08/08/16 06:06 - VTE Documentation of Mechanical Device: Intermittent pneumatic compression device Consult Discharge Plan - Plan [facility]errals: [facility] [Primary Care Provider] -
[2016-08-12] MEDS ORDERED: *HR* Metoprolol 5 MG/5 ML VIAL IVP PRN (14:58)
[2016-08-12] MEDS: cloZAPine 100 MG TABLET PO SCH (19:57)
[2016-08-13] MEDS: Ringers Solution, Lactated 1,000 ML IVC SCH (00:58)
[2016-08-13] MEDS: Ipratropium/Albuterol Neb 3 ML IH SCH ×2 (04:12→10:56)
[2016-08-13] MEDS: *HR* Enoxaparin 30 MG/0.3 ML SYRINGE SQ SCH (06:28)
[2016-08-13] MEDS: Pantoprazole 40 MG VIAL IVP SCH (08:43)
[2016-08-13] MEDS ORDERED: amLODIPine 5 MG TABLET PO SCH (09:00)
--- NOTE | 2016-08-13 11:02 | Discharge Summary ---
Date of Encounter: 08/13/16 Time of Encounter: 11:00 - Discharge Diagnosis (1) Femoral neck fracture Priority: Primary Status: Acute Comments: s/p surgery no complication Qualifiers: Encounter type: initial encounter Fracture type: closed Laterality: right Qualified Code(s): S72.001A - Fracture of unspecified part of neck of right femur, initial encounter for closed fracture (2) Dementia Priority: Secondary Status: Chronic Comments: chronic stable Qualifiers: Dementia type: unspecified type Dementia behavioral disturbance: without behavioral disturbance Qualified Code(s): F03.90 - Unspecified dementia without behavioral disturbance (3) Catatonic schizophrenia, chronic condition Priority: Secondary Status: Chronic (4) Major depression, chronic Priority: Secondary Status: Chronic Comments: stable (5) Anemia Priority: Secondary Status: Chronic Comments: hgb stable Qualifiers: Anemia type: iron deficiency Iron deficiency anemia type: unspecified iron deficiency Qualified Code(s): D50.9 - Iron deficiency anemia, unspecified (6) COPD (chronic obstructive pulmonary disease) Priority: Secondary Status: Chronic Comments: no active wheezing Qualifiers: COPD type: emphysema Emphysema type: panlobular Qualified Code(s): J43.1 - Panlobular emphysema (7) HTN (hypertension) Priority: Secondary Status: Chronic Comments: well controlled Qualifiers: Hypertension type: essential hypertension Qualified Code(s): I10 - Essential (primary) hypertension - Discharge Medications Prescriptions: HYDROcodone/Acet 5/325 mg [[place] 5-325 mg] 1 tab PO Q4HR PRN #30 tablet PRN Reason: Moderate Pain 4-6 Home Medications: Acetaminophen [Tylenol] 650 mg PO Q6H PRN 08/07/16 [History] Albuterol Neb [AccuNeb] 1.25 mg IH Q2H PRN 08/07/16 [History] Amlodipine [Norvasc] 5 mg PO DAILY 08/07/16 [History] Ammonium Lactate [Lac-Hydrin Five] 1 appl TP HS 08/07/16 [History] Atropine 1% Opth Drops 2 drop SL TID 08/07/16 [History] Bisacodyl [Dulcolax] 10 mg RC DAILY PRN 08/07/16 [History] Calcium Carbonate/Vitamin D3 [Calcium 500-Vit D3 200 Tablet] 1 each PO DAILY [History] Carboxymethylcellulose Sodium [Refresh Liquigel] 2 drop BOTH EYES BID 08/07/16 [ History] Chlorhexidine Gluconate [Peridex] 15 ml MM BID 08/07/16 [History] Cholecalciferol (D-3) [Vitamin D] 1,000 unit PO DAILY 08/07/16 [History] CloZAPine [Clozapine] 200 mg PO DAILY 08/07/16 [History] CloZAPine [Clozaril] 300 mg PO HS 08/07/16 [History] Ferrous Sulfate 325 mg PO DAILY 08/07/16 [History] Finasteride [Proscar] 5 mg PO DAILY 08/07/16 [History] Haloperidol 4 mg PO BID 08/07/16 [History] Haloperidol [Haldol] 2.5 mg PO Q6H PRN 08/07/16 [History] Hydrophilic Ointment [Aquabase] 1 appl TP WETHFRSA 08/07/16 [History] Ipratropium/Albuterol Neb [Duoneb] 3 ml IH Q6HR 08/07/16 [History] LORazepam [Ativan] 0.25 mg PO BID PRN 08/07/16 [History] LORazepam [Ativan] 0.5 mg PO QID 08/07/16 [History] Mag Hydrox/Al Hydrox/Simeth [Antacid Suspension] 15 ml PO TID PRN 08/07/16 [ History] Melatonin 9 mg PO HS 08/07/16 [History] Memantine HCl 10 mg PO BID 08/07/16 [History] Menthol/Camphor [Anti-Itch Lotion] 1 appl TP QID PRN 08/07/16 [History] Multivitamin [Multi-Day Vitamins] 1 each PO DAILY 08/07/16 [History] Nitroglycerin [Nitrostat] 0.4 mg SL Q5M PRN 08/07/16 [History] Nystatin POWDER [Nystop] 1 appl TP AD PRN 08/07/16 [History] Omeprazole [PriLOSEC] 20 mg PO DAILY 08/07/16 [History] Oxybutynin [Ditropan] 5 mg PO BID 08/07/16 [History] Polyethylene Glycol 3350 [Smoothlax] 17 gm PO DAILY 08/07/16 [History] Potassium Chloride [Klor-Con 10] 10 meq PO DAILY 08/07/16 [History] Sennosides/Docusate Sodium [Senna Plus] 2 each PO BID 08/07/16 [History] HYDROcodone/Acet 5/325 mg [[place] 5-325 mg] 1 tab PO Q4HR PRN #30 tablet [Rx] Allergies/Adverse Reactions: Allergies Amoxicillin Allergy (Verified 08/07/16 16:59) See Comments Date of admission: 08/08/16 00:25 [facility] physician[facility] Consults: 08/09/16 18:03 Consult to Occupational Therapy [CONS] Routine Comment: Evaluate, develop and implement POC Consult to Orthopedic Navigator [CONS] [CONS] Routine Consult to Physical Therapy [CONS] Routine Comment: Evaluate, develop and implement POC Consult to Gang Drill Press Operator [CONS] Routine Reason for SW Consult: post -op hip fracture RT Post Op Consult [CONS] Routine Discharging clinician: Glenn Marie Anticipated date of discharge: 08/13/16 - Patient Status Disposition: Transfer Inpatient Rehab Fac Overall status at discharge: other - Discharge Instructions - Diet and Activity Activity: as per the cardiac rehab, as per physical therapy Diet: advance to your usual diet Hospital course: Mr. Veliz is a 70 year old male - Time Spent with Patient Total time spent providing and/or coordinating discharge services: - Constitutional Vitals: Temp Pulse Resp BP Pulse Ox 98.7 F 77 18 145/95 92 L 08/13/16 08:01 08/13/16 08:01 08/13/16 08:01 08/13/16 08:01 08/13/16 08:01 General appearance: Present: A&O X 2, answers questions appropriately - VTE Documentation of Mechanical Device: Intermittent pneumatic compression device
--- NOTE | 2016-08-13 11:08 | Physician Discharge Referral ---
ExtendedCare Referral Info Transfer To: [facility] Provider in Charge after Transfer: PCP Institutional Level of Care: Skilled - Diagnosis (1) Femoral neck fracture Status: Acute (2) Dementia Status: Chronic (3) Catatonic schizophrenia, chronic condition Status: Chronic (4) Major depression, chronic Status: Chronic (5) Anemia Status: Chronic (6) COPD (chronic obstructive pulmonary disease) Status: Chronic (7) HTN (hypertension) Status: Chronic - Transfer Medications Prescriptions: HYDROcodone/Acet 5/325 mg [[place] 5-325 mg] 1 tab PO Q4HR PRN #30 tablet PRN Reason: Moderate Pain 4-6 Home Medications: Acetaminophen [Tylenol] 650 mg PO Q6H PRN 08/07/16 [History] Albuterol Neb [AccuNeb] 1.25 mg IH Q2H PRN 08/07/16 [History] Amlodipine [Norvasc] 5 mg PO DAILY 08/07/16 [History] Ammonium Lactate [Lac-Hydrin Five] 1 appl TP HS 08/07/16 [History] Atropine 1% Opth Drops 2 drop SL TID 08/07/16 [History] Bisacodyl [Dulcolax] 10 mg RC DAILY PRN 08/07/16 [History] Calcium Carbonate/Vitamin D3 [Calcium 500-Vit D3 200 Tablet] 1 each PO DAILY [History] Carboxymethylcellulose Sodium [Refresh Liquigel] 2 drop BOTH EYES BID 08/07/16 [ History] Chlorhexidine Gluconate [Peridex] 15 ml MM BID 08/07/16 [History] Cholecalciferol (D-3) [Vitamin D] 1,000 unit PO DAILY 08/07/16 [History] CloZAPine [Clozapine] 200 mg PO DAILY 08/07/16 [History] CloZAPine [Clozaril] 300 mg PO HS 08/07/16 [History] Ferrous Sulfate 325 mg PO DAILY 08/07/16 [History] Finasteride [Proscar] 5 mg PO DAILY 08/07/16 [History] Haloperidol 4 mg PO BID 08/07/16 [History] Haloperidol [Haldol] 2.5 mg PO Q6H PRN 08/07/16 [History] Hydrophilic Ointment [Aquabase] 1 appl TP WETHFRSA 08/07/16 [History] Ipratropium/Albuterol Neb [Duoneb] 3 ml IH Q6HR 08/07/16 [History] LORazepam [Ativan] 0.25 mg PO BID PRN 08/07/16 [History] LORazepam [Ativan] 0.5 mg PO QID 08/07/16 [History] Mag Hydrox/Al Hydrox/Simeth [Antacid Suspension] 15 ml PO TID PRN 08/07/16 [ History] Melatonin 9 mg PO HS 08/07/16 [History] Memantine HCl 10 mg PO BID 08/07/16 [History] Menthol/Camphor [Anti-Itch Lotion] 1 appl TP QID PRN 08/07/16 [History] Multivitamin [Multi-Day Vitamins] 1 each PO DAILY 08/07/16 [History] Nitroglycerin [Nitrostat] 0.4 mg SL Q5M PRN 08/07/16 [History] Nystatin POWDER [Nystop] 1 appl TP AD PRN 08/07/16 [History] Omeprazole [PriLOSEC] 20 mg PO DAILY 08/07/16 [History] Oxybutynin [Ditropan] 5 mg PO BID 08/07/16 [History] Polyethylene Glycol 3350 [Smoothlax] 17 gm PO DAILY 08/07/16 [History] Potassium Chloride [Klor-Con 10] 10 meq PO DAILY 08/07/16 [History] Sennosides/Docusate Sodium [Senna Plus] 2 each PO BID 08/07/16 [History] HYDROcodone/Acet 5/325 mg [[place] 5-325 mg] 1 tab PO Q4HR PRN #30 tablet [Rx] Allergies/Adverse Reactions: Allergies Amoxicillin Allergy (Verified 08/07/16 16:59) See Comments - Respiratory Orders Smoking Cessation: Smoking cessation has been advised. For more information, call the [place] Tobacco Quit Line at 4-948-OGYK-NOW. CERTIFICATION: I certify that the transfer of the above named patient to an Extended Care Facility is necessary for the continuing treatment of the diagnosis listed. The above information is true and accurate reflection of patient's current condition. Confidential - Redisclosure prohibited without a patient's written consent.
[2016-08-13 11:26] VITALS: BP 155/87
== END 2016-08-13 14:07 | DRG 481 ==
LOC: 3NENU 16:50 → EMEROO 16:50 → 3NENU 21:25
PROVIDERS: ADMIT Internal Medicine; ATTEND Internal Medicine